=== PATIENT | female | born 1980 | race Caucasian/White ===

== ENCOUNTER → 2018-09-20 11:44 | Outpatient (CLI) | payer OTHER, SELFPAY ==
--- NOTE | 2018-09-20 | DI.US.S_ITS ---
PROCEDURE: US PELVIC COMPLETE INDICATIONS: POSITIVE ; BLEEDING; HISTORY SAB X 8 TECHNIQUE: Real-time scanning was performed of the pelvic organs, with image documentation. Additional endovaginal scanning was necessary due to incomplete visualization of the adnexal and endometrial structures by transabdominal scanning. COMPARISON: None. FINDINGS: Transabdominal scanning: Limited scanning through the kidneys shows no hydronephrosis. No pathologic free abdominal or pelvic fluid. Endovaginal scanning: Uterus: Uterus is normal in size at 5.0 x 5.7 x 12.7 cm. The endometrium measures 12.0 mm in combined thickness and there is no evidence for presence of intrauterine gestation. Ovaries: Right ovary measures 3.4 x 2.1 x 2.5 cm and contains what appears to be a small corpus luteum cyst measuring up to 1.7 x 1.7 x 1.9 cm. The left ovary measures 2.7 x 0.9 x 1.1 cm. IMPRESSION: An intrauterine gestation is not seen. Sonographic evidence definitive for diagnosis of ectopic also is not seen. Correlation with quantitative beta hCG may be warranted at this time. Dictated by: Mohan Fiore M.D. on 09/20/2018 at 12:53 Approved by: Mohan Fiore M.D. on 09/20/2018 at 12:55
== END ==
PROVIDERS: PCP Family Medicine; Visit Provider Family Medicine
DX: N93.9 Abnormal uterine and vaginal bleeding, unspecified (principal); Z32.01 Encounter for pregnancy test, result positive; N96 Recurrent pregnancy loss
CPT/HCPCS: 76830; 76856

== ENCOUNTER → 2018-10-02 14:56 | Outpatient (CLI) | payer OTHER, SELFPAY ==
--- NOTE | 2018-10-02 | DI.US.S_ITS ---
PROCEDURE: US PELVIC COMPLETE INDICATIONS: SIZE AND DATING TECHNIQUE: Real-time scanning was performed of the pelvic organs, with image documentation. Additional endovaginal scanning was necessary due to incomplete visualization of the adnexal and endometrial structures by transabdominal scanning. COMPARISON: [facility], , PELVIC COMPLETE, 09/20/2018, 12:13. FINDINGS: Transabdominal scanning: No pathologic free abdominal or pelvic fluid. Endovaginal scanning: Uterus: Uterus is normal in size at 6.5 x 3.7 x 6 cm. The endometrium measures 12 mm in combined thickness. No findings of an intrauterine can be seen. Ovaries: The right ovary measures 3.3 x 2.4 x 2 cm. The left ovary measures 2 by 1 by 1 x 2.9 cm. The ovaries have a normal sonographic appearance, with a physiologic appearing 1.2 cm cyst involving the right ovary. No adnexal masses are seen. IMPRESSION: No intrauterine is seen. Please correlate for potential ectopic . Close clinical followup, with serial beta-hCG and serial ultrasound are recommended, as clinically appropriate. Dictated by: Benedict Gee M.D. on 10/02/2018 at 15:41 Approved by: Benedict Gee M.D. on 10/02/2018 at 15:42
== END ==
PROVIDERS: PCP Family Medicine; Visit Provider Family Medicine
DX: Z36.87 Encounter for antenatal screening for uncertain dates (principal)
CPT/HCPCS: 76830; 76856

== ENCOUNTER → 2019-05-18 14:24 | Outpatient (ROUT) | payer OTHER, SELFPAY ==
[2019-05-18 14:58] LABS: HCG Quantitative /Beta subunit 16.23 mIU/mL
== END ==
PROVIDERS: PCP Family Medicine; Visit Provider Student in an Organized Health Care Education/Training Program
DX: O26.20 Pregnancy care for patient with recurrent pregnancy loss, unspecified trimester (principal)
CPT/HCPCS: 84702

== ENCOUNTER → 2019-05-23 17:13 | Outpatient (CLI) | payer OTHER, SELFPAY ==
[2019-05-23 17:38] LABS: Add Manual Diff / Slide Review NO; Basophils Absolute Auto 0 /uL (0-100); Basophils Percent Auto 0.4 % (0-2); Eosinophils Absolute Auto 200 /uL (0-450); Eosinophils Percent Auto 2.2 % (2-4); Hematocrit 40.7 % (36-46); Lymphocytes Absolute Auto 1800 /uL (1100-4500); Lymphocytes Percent Auto 21.7 % (25-40); Mean Corpuscular HGB Conc 34.4 % (30-36); Mean Corpuscular Hemoglobin 30.7 PG (26-34); Mean Corpuscular Volume 89.4 fL (80-100); Monocytes Absolute Auto 600 /uL (0-900); Monocytes Percent Auto 6.9 % (3-14); Neutrophils Absolute Auto 5600 /uL (1500-7000); Neutrophils Percent Auto 68.8 % (50-75); Platelet Count 226 X10^3/uL (150-400); Red Blood Cell Count 4.55 X10^6/uL (4.0-5.2); White Blood Cell Count 8.2 X10^3/uL (4.5-11.0)
[2019-05-23 18:24] LABS: BUN Creatinine Ratio 26.7 (6-22); Blood Urea Nitrogen 16 mg/dL (7-17); Calcium 9.5 mg/dL (8.4-10.2); Carbon Dioxide 28 mmol/L (22-32); Chloride 102 mmol/L (98-107); Estimated Glomerular Filt Rate > 60.0 mL/min (>60); Glucose 93 mg/dL (70-100); HEMOLYSIS < 15 (0-50); Potassium 4.5 mmol/L (3.4-5.1); Sodium 139 mmol/L (137-145)
[2019-05-23 18:41] LABS: HCG Quantitative /Beta subunit < 2.39 mIU/mL
[2019-05-23 18:54] LABS: Thyroid Stimulating Hormone 2.57 uIU/mL (0.47-4.68)
== END ==
PROVIDERS: PCP Family Medicine; Visit Provider Family Medicine
DX: R55 Syncope and collapse (principal)
CPT/HCPCS: 36415; 80048; 84443; 84702; 85025